=== PATIENT | female | born 1975 | race Caucasian/White ===

== ENCOUNTER 2016-03-17 21:43 | Emergency (ER) | payer BC, OTHER ==
[2016-03-17 21:50] VITALS: BP 139/90; PULSE 87; RESP 18; TEMP 97.6; O2SAT 99
== END 2016-03-17 22:04 | disposition home or self-care (01) ==
LOC: ED 21:43
DX: T19.2XXA Foreign body in vulva and vagina, initial encounter (principal)
CPT/HCPCS: 99282